=== PATIENT | female | born 1945 | race Caucasian/White ===

== ENCOUNTER 2022-03-24 14:41 | Emergency (ER) | payer MEDICARE, SELFPAY ==
[2022-03-24 15:01] VITALS: BP 131/53; PULSE 63; RESP 16; TEMP 36.3; O2SAT 100
[2022-03-24 15:06] VITALS: BP 131/53; PULSE 63; RESP 16; TEMP 36.3; O2SAT 100
--- NOTE | 2022-03-24 15:09 | ED.EAR ---
HPI - Ear Problem General Chief complaint: Ear Stated complaint: lt ear pain Time Seen by Provider: 03/24/22 15:09 Source: patient Mode of arrival: ambulatory Limitations: no limitations History of Present Illness HPI Narrative: 76-year-old female presents with complaint of pain to left ear for 2 days. Patient reports that she was prescribed Augmentin 4 days ago by her primary care physician for a sinus infection. At that time she had been taking Mucinex and Claritin. She stepped Mucinex and Claritin when she started Augmentin because she was unsure if she could take them together. She states that her left ear began hurting. No change in hearing. Afebrile. No other complaints today. All systems reviewed and negative except as noted above. Related Data Home Medications Medication Instructions Recorded Confirmed allopurinol 100 mg tablet 100 mg PO DAILY 03/24/22 03/24/22 lisinopril 20 1 tablet PO HS 03/24/22 03/24/22 mg-hydrochlorothiazide 25 mg tablet omeprazole 20 mg capsule,delayed 20 mg PO DAILY 03/24/22 03/24/22 release pravastatin 40 mg tablet 40 mg PO DAILY 03/24/22 03/24/22 Allergies Allergy/AdvReac Type Severity Reaction Status Date / Time cefdinir Allergy Hives Verified 03/24/22 15:09 ciprofloxacin [From Cipro] Allergy Hives Verified 03/24/22 15:09 hydromorphone Allergy Gastrointestinal Verified 03/24/22 15:09 Upset ibuprofen Allergy Other Verified 03/24/22 15:09 levofloxacin Allergy Anaphylaxis Verified 03/24/22 15:09 methylprednisolone Allergy Headache Verified 03/24/22 15:09 morphine Allergy Gastrointestinal Verified 03/24/22 15:09 Upset prednisone Allergy Rash Verified 03/24/22 15:09 sodium benzoate Allergy Hives Verified 03/24/22 15:09 Review of Systems Review of Systems: CONSTITUTIONAL: Denies fever, chills, or sweats. EYES: Denies visual changes, redness, or discharge. ENT: Denies rhinorrhea, congestion, sore throat. Reports left ear pain. CARDIOVASCULAR: Denies chest pain, palpitations, or edema. RESPIRATORY: Denies cough or dyspnea. GASTROINTESTINAL: Denies abdominal pain, nausea, vomiting, or diarrhea. GENITOURINARY: Denies dysuria or hematuria. SKIN: Denies rash or itching. MUSCULOSKELETAL: Denies back pain, joint pain, or myalgia. NEUROLOGIC: Denies headache, numbness, or weakness. PSYCHIATRIC: Denies anxiety or depression. All other systems reviewed are negative, except as documented in HPI. PMFSH Comments At time of signature, agree with nursing past medical, surgical, social and family history. There is no relevant family history pertinent to the presenting complaint. Exam Narrative: GENERAL: This is a well-nourished, well-developed patient, in no apparent distress. HEAD: normocephalic, atraumatic. EYES: PERRL. Sclera clear/white. Vision is grossly intact. EARS: External ears normal, auditory canals clear and without drainage, Fluid bilateral TMs without perforation. No erythema. NOSE: External nose normal with no obvious nasal discharge, nares without redness, no rhinorrhea. THROAT: Mucous membranes moist, posterior pharynx clear. NECK: Neck supple, non-tender without lymphadenopathy, masses or thyromegaly. CARDIOVASCULAR: Regular rate and rhythm without murmurs, gallops, or rubs. RESPIRATORY: Clear to auscultation. Breath sounds equal bilaterally. No wheezes, rales, or rhonchi. \ SKIN: warm, Dry, intact with no suspicious lesions or rash, good texture and turgor. NEURO: awake, alert, and oriented to person, place and time. There were no obvious focal neurologic abnormalities. EXTREMITIES: No joint tenderness, effusion, or edema noted. Course Course Level of Care: Express Care Visit Vital Signs Vital signs: Vital Signs Temperature 36.3 C L 03/24/22 15:01 Pulse Rate 63 03/24/22 15:01 Respiratory Rate 16 03/24/22 15:01 Blood Pressure 131/53 L 03/24/22 15:01 Pulse Oximetry 100 03/24/22 15:01 Oxygen Delivery Room Air 03/24/22 15
== END 2022-03-24 15:30 | disposition home or self-care (01) ==
PROVIDERS: Emergency Provider Nurse Practitioner Family; PCP Internal Medicine
DX: H65.02 Acute serous otitis media, left ear (principal); E78.00 Pure hypercholesterolemia, unspecified; I10 Essential (primary) hypertension; K21.9 Gastro-esophageal reflux disease without esophagitis; M10.9 Gout, unspecified; Z86.16 Personal history of COVID-19
CPT/HCPCS: 99203; G0463